=== PATIENT | male | born 1995 | race Caucasian/White ===

== ENCOUNTER 2017-04-25 03:54 | Emergency (ER) | payer OTHER ==
--- NOTE | 2017-04-25 04:22 | ERPHSYRPT ---
- History of Present Illness Time Seen by Provider: 04/25/17 04:17 Source: patient, family Exam Limitations: clinical condition Patient Subjective Stated Complaint: mom states that pt had a seizure, fell out of bed, and hit his head on the wall. Triage Nursing Assessment: pt awake and alert, nonverbal. will answer no to some questions. pt arrive per ambulance. mom with pt on arrival. respirations nonlabored with lungs cta. abrasion and swelling noted to forehead and nose. abrasions noted to fingers on lt hand. bleeding noted from fingernails on rt hand. Physician History: 21 y/o male brought in by ambulance after having a fall last night and landing on his face. Pt arrives with multiple abrasion on his face. According to the mother, patient had a two minute episode of tonic clonic seizure. Pt is not on any seizure meds. No LOC. Pt is not on any blood thinners. Pt is not able to provide any history due to severe autism. Occurred: just prior to arrival Reason for Fall: slipped Injuries/Pain Location: face Loss of Consciousness: brief (seconds) Allergies/Adverse Reactions: No Known Drug Allergies Allergy (Verified 04/25/17 04:09) Home Medications: Paroxetine HCl mg PO 04/25/17 [History] Hx Tetanus, Diphtheria Vaccination/Date Given: Yes Hx Influenza Vaccination/Date Given: No Hx Pneumococcal Vaccination/Date Given: No Immunizations Up to Date: Yes - Review of Systems Constitutional: No Fever, No Chills Eyes: No Symptoms Ears, Nose, & Throat: No Symptoms Respiratory: No Cough, No Dyspnea Cardiac: No Chest Pain, No Edema, No Syncope Abdominal/Gastrointestinal: No Abdominal Pain, No Nausea, No Vomiting, No Diarrhea Genitourinary Symptoms: No Dysuria Musculoskeletal: No Back Pain, No Neck Pain Skin: Other (abrasions), No Rash Neurological: No Dizziness, No Focal Weakness, No Sensory Changes Psychological: No Symptoms Endocrine: No Symptoms All Other Systems: Reviewed and Negative - Past Medical History Pertinent Past Medical History: Yes Neurological History: Seizures Cardiac History: High Cholesterol Psycho-Social History: Other Other Medical History: AUTISM SPECTRUM DISORDER - Past Surgical History Past Surgical History: No - Social History Smoking Status: Never smoker Exposure to second hand smoke: No Drug Use: none Patient Lives Alone: No Significant Family History: other (MOTHER HAD SEIZURE) - Nursing Vital Signs Nursing Vital Signs: Initial Vital Signs Temperature 98.5 F Temperature Source Oral Pulse Rate 95 Respiratory Rate 18 Blood Pressure [Right Arm] 136/74 - Downey Coma Score Best Eye Response (Nadine): (4) open spontaneously Best Verbal Response (Downey): (5) oriented Best Motor Response (Nadine): (6) obeys commands Downey Total: 15 - Physical Exam General Appearance: no apparent distress, alert Head Injury: no evidence of injury Eye Exam: PERRL/EOMI ENT Exam: airway nml, clotted nasal blood Neck Exam: normal inspection, No tenderness Respiratory/Chest Exam: normal breath sounds, No chest tenderness, No respiratory distress Cardiovascular Exam: normal heart sounds, regular rate/rhythm Gastrointestinal Exam: soft, No tenderness, No distention, No guarding, No ecchymosis Back Exam: normal inspection, No vertebral tenderness Extremity Exam: normal inspection, normal range of motion, pelvis stable, No deformities Neurologic Exam: alert, oriented x 3, cooperative, sensation nml, No motor deficits Skin Exam: normal color, warm, dry SpO2: 98 Oxygen Delivery: Room Air - Course Nursing assessment & vital signs reviewed: Yes Ordered Tests: Active Orders 24 hr Category Date Time Status CERVICAL SPINE WO CONTRAST [CT] Stat Exams 04/25/17 04:24 Taken FACIAL BONES WO CONTRAST [CT] Stat Exams 04/25/17 04:24 Taken HEAD WITHOUT CONTRAST [CT] Stat Exams 04/25/17 04:23 Taken CBCD [CBC W DIFF] Stat Lab 04/25/17 04:37 Completed CK (IN-HOUSE) [CK-Creatinine Phosphokinase] Stat Lab 04/25/17 04:37 Completed CMP Stat Lab 04/25/17 04:37 Completed UA W/RFX UR CULTURE Stat Lab 04/25/17 04:22 Ordered Medication Summary Discontinued Medications Generic Name Dose Route Start Last Admin Trade Name Freq PRN Reason Stop Dose Admin Sodium Chloride 1,000 mls @ 999 mls/hr 04/25/17 04:23 04/25/17 04:35 Sodium Chloride 0.9% 1000 Ml IV 04/25/17 05:23 999 mls/hr .Q1H1M STA Administration Sodium Chloride Confirm 04/25/17 04:26 Sodium Chloride 0.9% 1000 Ml Administered 04/25/17 04:27 Dose 1,000 mls @ ud .ROUTE .STK-MED ONE Sodium Chloride Confirm 04/25/17 04:35 Sodium Chloride 0.9% 1000 Ml Administered 04/25/17 04:36 Dose 1,000 mls @ .[facility] ONE Lab/Rad Data: Laboratory Result Diagrams 04/25/17 04:37 04/25/17 04:37 Laboratory Results 04/25/17 04/25/17 04/25/17 Range/Units 04:37 04:37 04:37 WBC 9.1 (4.0-10.5) K/mm3 RBC 4.89 (4.1-5.6) M/mm3 Hgb 15.1 (12.5-18.0) gm/dl Hct 45.6 (42-50) % MCV 93.3 (78-100) fl MCH 30.9 (26-32) pg MCHC 33.1 (32-36) g/dl RDW 12.5 (11.5-14.0) % Plt Count 222 (150-450) K/mm3 MPV 11.6 H (6-9.5) fl Gran % 63.4 (36.0-66.0) % Lymphocytes % 25.0 (24.0-44.0) % Monocytes % 9.7 (0.0-12.0) % Eosinophils % 1.8 (0.00-5.0) % Basophils % 0.1 (0.0-0.4) % Basophils # 0.01 (0-0.4) Sodium 140 (136-145) mEq/L Potassium 3.9 (3.5-5.1) mEq/L Chloride 102 (98-107) mEq/L Carbon Dioxide 27.5 (21-32) mEq/L Anion Gap 14.0 (5-15) MEQ/L BUN 20 (9-20) mg/dL Creatinine 1.13 (0.55-1.30) mg/dl Estimated GFR > 60 ML/MIN Glucose 108 (70-110) MG/DL Calcium 8.9 (8.5-10.1) mg/dL Total Bilirubin 0.40 (0.2-1.0) mg/dL AST 19 (15-37) U/L ALT 29 (12-78) U/L Alkaline Phosphatase 67 (46-116) U/L Creatine Kinase 258 (39-308) U/L Serum Total Protein 7.1 (6.4-8.2) gm/dL Albumin 4.0 (3.4-5.0) g/dL - Progress Progress: improved Progress Note: 04/25/17 05:[address] scan head, cervical spine and facial bones are within normal limits. The rest of the labs are within normal limits. The pt has not had any seizure since arriving to the ER. Pt will f/u with his PCP. - Departure Time of Disposition: 05:30 Departure Disposition: Home Clinical Impression: Seizure Condition: Stable Critical Care Time: No Referrals: YAAKOV WILSON [Primary Care Provider] - Instructions: Seizure Disorder -- Adult Additional Instructions: Follow up with your primary care doctor for any further recommendations for seizures.
[2017-04-25] MEDS ORDERED: Sodium Chloride 0.9% 1000 ML 1,000 ML IV STA (04:23)
[2017-04-25] MEDS ORDERED: Sodium Chloride 0.9% 1000 ML 1,000 ML ONE ×2 (04:26→04:35)
[2017-04-25 04:49] LABS: BASOPHIL % 0.1 % (0.0-0.4); Eosinophil % 1.8 % (0.00-5.0); Granulocytes % 63.4 % (36.0-66.0); Mean Cell Volume 93.3 fl (78-100); Mean Corpuscular Hemoglobin 30.9 pg (26-32); Mean Platelet Volume 11.6 fl (6-9.5); Monocytes % 9.7 % (0.0-12.0); Platelet Count 222 K/mm3 (150-450); Red Blood Count 4.89 M/mm3 (4.1-5.6); Red Cell Distribution Width 12.5 % (11.5-14.0); White Blood Count 9.1 K/mm3 (4.0-10.5)
[2017-04-25 05:13] LABS: ALKALINE PHOSPHATASE 67 U/L (46-116); BLOOD UREA NITROGEN 20 mg/dL (9-20); CHLORIDE 102 mEq/L (98-107); Carbon Dioxide 27.5 mEq/L (21-32); Glucose 108 MG/DL (70-110); Potassium 3.9 mEq/L (3.5-5.1); SGOT/AST 19 U/L (15-37); SGPT/ALT 29 U/L (12-78); SODIUM 140 mEq/L (136-145); Total Protein 7.1 gm/dL (6.4-8.2)
[2017-04-25 05:57] VITALS: BP 129/65; PULSE 78; O2SAT 95
--- NOTE | 2017-04-25 09:10 | XRAY ---
Indication: Neck pain following fall. Multiple contiguous axial images obtained through the cervical spine. Sagittal and coronal reformatted images obtained. Comparison: None. Axial images negative for acute fracture, suspicious bony lesions, or spinal canal stenosis. Sagittal and coronal reformatted images demonstrates cervical lordotic reversal, positional versus paraspinal muscular spasm. Minimal C5-C6 disc space narrowing. Remaining disc spaces preserved. No acute compression fracture, subluxation, or jumped facet. Normal-appearing craniocervical junction. Visualized noncontrasted soft tissues unremarkable. CT head and CT facial bones reported separately. Impression: Cervical lordotic reversal, positional versus paraspinal spasm. Minimal C5-C6 degenerative disc space narrowing. Negative acute fracture/subluxation. Comment: Preliminary interpretation was made by [facility]. No critical discrepancy. CTDI 138.89
--- NOTE | 2017-04-25 09:20 | XRAY ---
Indication: Right frontal abrasion/swelling following fall. Multiple contiguous axial images obtained through the head without contrast. Comparison: July 15, 2016. Stable normal appearing brain parenchyma, ventricles, and bony calvarium. Minimal right frontal scalp soft tissue swelling. Visualized paranasal sinuses and mastoid air cells are pneumatized and clear. Impression: Minimal right frontal scalp soft tissue swelling. No underlying fracture or acute intracranial abnormalities. Comment: Preliminary interpretation was made by [facility]. No discrepancy. CTDI 46.29
--- NOTE | 2017-04-25 09:24 | XRAY ---
Indication: Right frontal abrasion/swelling following fall. Mouth and nose bleed. Multiple contiguous axial images obtained through the facial bones. Sagittal and coronal reformatted images obtained. Comparison: None. Minimally displaced fracture involving the tip of the spine of the maxilla with soft tissue swelling. No other acute fracture, suspicious bony lesions, or radiopaque foreign body. Orbits including roof, rodrigez, and floors intact. Paranasal sinuses are pneumatized and clear. Mild nasal septal deviation to the right. Remaining noncontrasted surrounding soft tissues are unremarkable. CT head and CT cervical spine reported separately. Impression: Fracture involving the tip of the maxilla spine. Comment: Preliminary interpretation was made by [facility]. No critical discrepancy. CTDI 59.47
== END 2017-04-25 06:08 | disposition home or self-care (01) ==
LOC: ED 03:54
DX: R56.9 Unspecified convulsions (principal); S00.93XA Contusion of unspecified part of head, initial encounter; S60.419A Abrasion of unspecified finger, initial encounter; S00.81XA Abrasion of other part of head, initial encounter; F84.0 Autistic disorder; W06.XXXA Fall from bed, initial encounter; E78.00 Pure hypercholesterolemia, unspecified
CPT/HCPCS: 36415; 70450; 70486; 72125; 80053; 82550; 85025; 96360; 99284

== ENCOUNTER 2017-07-24 15:54 | Emergency (ER) | payer OTHER ==
[2017-07-24] MEDS ORDERED: Sodium Chloride 0.9% 1000 ML 1,000 ML IV SCH (16:00)
[2017-07-24] MEDS ORDERED: Sodium Chloride 0.9% 1000 ML 1,000 ML ONE (16:06)
--- NOTE | 2017-07-24 16:07 | ERPHSYRPT ---
- History of Present Illness Time Seen by Provider: 07/24/17 15:57 Source: patient Exam Limitations: other (patient with recent seizure patient is postictal) Patient Subjective Stated Complaint: PT MOTHER REPORTS THAT PT HAD SEIZURE TODAY -STATES PT DOES NOT LIVE WITH HER ET SHE IS UNSURE OF WHEN HIS LAST SEIZURE WAS- STATES THAT IT WAS LIKE HIS USUAL SEIZURES BUT SHE IS NOT USED TO HIM HAVING THEM Triage Nursing Assessment: PT POST ICTAL UPON ARRIVAL-UNABLE TO ANSWER QUESTIONS BUT CAN FOLLOW SIMPLE COMMANDS-RESP NONLABORED-PUPILS RESPONSIVE Physician History: This is a 21-year-old white male with history of seizure disorders, hyperlipidemia, autism Patient is brought by his mother with complaint that patient had a seizure just prior to arrival patient is in the mother's car pulled into the day on arrival patient was postictal. Patient is brought into the emergency room by the nurses. On arrival patient appears to be somewhat confused he is however looking around he is able to move all of his extremities cranial nerves II through XII are intact. According to the mother patient has had a seizure in which the patient laid back and had some jerking motions of his upper extremity states typical for prior seizures. Patient's mother is not sure what medications the patient is on. Apparently patient is on Xanax Geodon and Paxil. Past medical history includes seizures, hyperlipidemia, autism spectrum disorder. Past surgical history negative Timing/Duration: today (just prior to arrival) Severity: moderate Modifying Factors: Improves With: nothing Associated Symptoms: seizure, No nausea, No vomiting, No abdominal pain, No shortness of breath, No heartburn, No diaphoresis, No cough, No chills, No chest pain, No fever, No headaches, No loss of appetite, No malaise, No rash, No syncope, No weakness Allergies/Adverse Reactions: No Known Drug Allergies Allergy (Verified 07/24/17 16:03) Home Medications: Paroxetine HCl 20 mg PO DAILY 04/25/17 [History] Alprazolam 1 mg [Xanax 1 mg] 1 mg PO BID 07/24/17 [History] Ziprasidone 20 mg [Geodon 20 MG Capsule] 20 mg PO DAILY 07/24/17 [History] Hx Tetanus, Diphtheria Vaccination/Date Given: Yes Hx Influenza Vaccination/Date Given: No Hx Pneumococcal Vaccination/Date Given: No Immunizations Up to Date: Yes - Review of Systems Constitutional: No Fever, No Chills Eyes: No Symptoms Ears, Nose, & Throat: No Symptoms Respiratory: No Cough, No Dyspnea Cardiac: No Chest Pain, No Edema, No Syncope Abdominal/Gastrointestinal: No Abdominal Pain, No Nausea, No Vomiting, No Diarrhea Genitourinary Symptoms: No Dysuria Musculoskeletal: No Back Pain, No Neck Pain Skin: No Rash Neurological: Seizure Psychological: No Symptoms Endocrine: No Symptoms All Other Systems: Reviewed and Negative - Past Medical History Pertinent Past Medical History: Yes Neurological History: Seizures Cardiac History: High Cholesterol Psycho-Social History: Other Other Medical History: AUTISM SPECTRUM DISORDER - Past Surgical History Past Surgical History: No - Social History Smoking Status: Never smoker Exposure to second hand smoke: No Drug Use: none Patient Lives Alone: No Significant Family History: other (MOTHER HAD SEIZURE) - Nursing Vital Signs Nursing Vital Signs: Initial Vital Signs Temperature 97.8 F 07/24/17 16:09 Pulse Rate 105 H 07/24/17 16:09 Respiratory Rate 18 07/24/17 16:09 Blood Pressure 132/64 07/24/17 16:09 O2 Sat by Pulse Oximetry 97 07/24/17 16:09 Pain Scale Pain Intensity 0 - Physical Exam General Appearance: other (patient confused and postictal) Eye Exam: PERRL/EOMI, eyes nml inspection Ears, Nose, Throat Exam: normal ENT inspection, TMs normal, pharynx normal, moist mucous membranes Neck Exam: normal inspection, non-tender, supple, full range of motion Respiratory Exam: normal breath sounds, lungs clear, No respiratory distress Cardiovascular Exam: regular rate/rhythm, normal heart sounds, normal peripheral pulses Gastrointestinal/Abdomen Exam: soft, normal bowel sounds, No tenderness, No mass Back Exam: normal inspection, normal range of motion, No CVA tenderness, No vertebral tenderness Extremity Exam: normal inspection, normal range of motion, pelvis stable Neurologic Exam: alert, 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 nml as tested, other (patient appears to be confused, postictal moves all extremities cranial nerves II through XII intact) Skin Exam: normal color, warm, dry, No rash Lymphatic Exam: No adenopathy SpO2 Interpretation: normal - Course Nursing assessment & vital signs reviewed: Yes EKG Interpreted by Me: RATE (105 bpm), Sinus Tach, NORMAL AXIS, Other (EKG: Sinus tachycardia, 105 bpm, normal axis, no acute ST or T wave changes) Ordered Tests: Active Orders 24 hr Category Date Time Status Accucheck STAT Care 07/24/17 15:57 Active EKG-ER Only STAT Care 07/24/17 15:57 Active IV Insertion STAT Care 07/24/17 15:57 Active CBC W DIFF Stat Lab 07/24/17 16:00 Completed CMP Stat Lab 07/24/17 16:00 Completed Medication Summary Generic Name Dose Route Start Last Admin Trade Name Marely PRN Reason Stop Dose Admin Sodium Chloride 1,000 mls @ 100 mls/hr 07/24/17 16:00 07/24/17 16:08 Sodium Chloride 0.9% 1000 Ml IV 08/23/17 15:59 100 mls/hr .Q10H SETH Administration Lab/Rad Data: Laboratory Result Diagrams 07/24/17 16:00 07/24/17 16:00 Laboratory Results 07/24/17 07/24/17 Range/Units 16:00 16:00 WBC 9.2 (4.0-10.5) K/mm3 RBC 5.31 (4.1-5.6) M/mm3 Hgb 16.1 (12.5-18.0) gm/dl Hct 49.5 (42-50) % MCV 93.2 (78-100) fl MCH 30.3 (26-32) pg MCHC 32.5 (32-36) g/dl RDW 12.7 (11.5-14.0) % Plt Count 276 (150-450) K/mm3 MPV 11.0 H (6-9.5) fl Gran % 45.9 (36.0-66.0) % Lymphocytes % 40.5 (24.0-44.0) % Monocytes % 11.4 (0.0-12.0) % Eosinophils % 2.0 (0.00-5.0) % Basophils % 0.2 (0.0-0.4) % Basophils # 0.02 (0-0.4) Sodium 141 (136-145) mEq/L Potassium 3.8 (3.5-5.1) mEq/L Chloride 102 (98-107) mEq/L Carbon Dioxide 21.1 (21-32) mEq/L Anion Gap 21.7 H (5-15) MEQ/L BUN 15 (9-20) mg/dL Creatinine 1.21 (0.55-1.30) mg/dl Estimated GFR > 60 ML/MIN Glucose 115 H (70-110) MG/DL Calcium 8.8 (8.5-10.1) mg/dL Total Bilirubin 0.60 (0.2-1.0) mg/dL AST 19 (15-37) U/L ALT 37 (12-78) U/L Alkaline Phosphatase 80 (46-116) U/L Serum Total Protein 7.5 (6.4-8.2) gm/dL Albumin 4.3 (3.4-5.0) g/dL - Progress Progress: improved Progress Note: 07/24/17 17:01 The patient is improving more alert, no further seizure activity, the patient's anion gap is increased will give patient normal saline IV . The patient's motherwas in contact with the patient's father, he wants him to return home when he is awake, Will plan to release after iv normal saline has run in. - Departure Time of Disposition: 17:40 Departure Disposition: Home Clinical Impression: Seizure Condition: Fair Critical Care Time: No Referrals: YAAKOV WILSON [Primary Care Provider] - Instructions: Seizure Disorder -- Adult Additional Instructions: Return home, rest plenty of fluids Take medications as prescribed by your family doctor. follow up with your familydoctor/ neurologist No heights , no Driving, take showers instead of baths do not engage in any activity which may harm you or anyone else. Return for acute distress or for severe symptoms or problems.
[2017-07-24 16:12] LABS: BASOPHIL % 0.2 % (0.0-0.4); Granulocytes % 45.9 % (36.0-66.0); Lymphocytes % 40.5 % (24.0-44.0); Mean Cell Volume 93.2 fl (78-100); Mean Corpuscular Hemoglobin 30.3 pg (26-32); Monocytes % 11.4 % (0.0-12.0); Platelet Count 276 K/mm3 (150-450); Red Blood Count 5.31 M/mm3 (4.1-5.6); Red Cell Distribution Width 12.7 % (11.5-14.0); White Blood Count 9.2 K/mm3 (4.0-10.5)
[2017-07-24 16:33] LABS: ALBUMIN 4.3 g/dL (3.4-5.0); ALKALINE PHOSPHATASE 80 U/L (46-116); ANION GAP 21.7 MEQ/L (5-15); BLOOD UREA NITROGEN 15 mg/dL (9-20); CHLORIDE 102 mEq/L (98-107); Carbon Dioxide 21.1 mEq/L (21-32); Glucose 115 MG/DL (70-110); Potassium 3.8 mEq/L (3.5-5.1); SGOT/AST 19 U/L (15-37); SGPT/ALT 37 U/L (12-78); SODIUM 141 mEq/L (136-145); Total Protein 7.5 gm/dL (6.4-8.2)
[2017-07-24 18:50] VITALS: BP 125/74; PULSE 68; O2SAT 98
== END 2017-07-24 18:17 | disposition home or self-care (01) ==
LOC: ED 15:54
DX: R56.9 Unspecified convulsions (principal)
CPT/HCPCS: 36000; 36415; 80053; 82962; 85025; 93005; 96360; 96361; 99284

== ENCOUNTER 2017-09-17 20:57 | Emergency (ER) | payer OTHER ==
[2017-09-17] MEDS ORDERED: Sodium Chloride 0.9% 1000 ML 1,000 ML IV STA (21:08)
[2017-09-17] MEDS ORDERED: Sodium Chloride 0.9% 1000 ML 1,000 ML ONE (21:11)
--- NOTE | 2017-09-17 21:15 | ERPHSYRPT ---
- History of Present Illness Time Seen by Provider: 09/17/17 21:00 Source: EMS Exam Limitations: clinical condition, other (postictal, chronic confusion) Patient Subjective Stated Complaint: Unable to evaluate, pt is nonverbal, postictal. According to EMS personnel he suffered one episode of seizure according to her family. No recent fall, vomiting or fever. Timing/Duration: today Severity: severe Character of Deficits: other (seizure) Deficits: no difficulties Baseline/Normal Cognition: alert but confused Current Cognition: alert but confused Associated Symptoms: other (unable to evaluate, pt is nonverbal) Allergies/Adverse Reactions: No Known Drug Allergies Allergy (Verified 07/24/17 16:03) Home Medications: Paroxetine HCl 20 mg PO DAILY 04/25/17 [History] Alprazolam 1 mg [Xanax 1 mg] 1 mg PO BID 07/24/17 [History] Ziprasidone 20 mg [Geodon 20 MG Capsule] 20 mg PO DAILY 07/24/17 [History] Hx Tetanus, Diphtheria Vaccination/Date Given: Yes Hx Influenza Vaccination/Date Given: No Hx Pneumococcal Vaccination/Date Given: No - Review of Systems All Other Systems: Unable due to condition - Past Medical History Pertinent Past Medical History: Yes Neurological History: Seizures Cardiac History: High Cholesterol Psycho-Social History: Other Other Medical History: AUTISM SPECTRUM DISORDER - Past Surgical History Past Surgical History: No - Social History Smoking Status: Never smoker Exposure to second hand smoke: No Drug Use: none Patient Lives Alone: No Significant Family History: other (MOTHER HAD SEIZURE) - Nursing Vital Signs Nursing Vital Signs: Initial Vital Signs Temperature 97.6 F 09/17/17 21:25 Pulse Rate 105 H 09/17/17 21:25 Respiratory Rate 16 09/17/17 21:25 Blood Pressure 135/75 09/17/17 21:25 O2 Sat by Pulse Oximetry 95 09/17/17 21:25 Pain Scale Pain Intensity 2 - Nadine Coma Scale Best Eye Response (Nadine): (4) open spontaneously Best Verbal Response (Marion): (2) incomprehsible sounds Best Motor Response (Nadine): (5) localizes to pain Nadine Total: 11 - Physical Exam General Appearance: no apparent distress Eye Exam: bilateral eye: PERRL, EOMI Ears, Nose, Throat Exam: normal ENT inspection, TMs normal, pharynx normal Neck Exam: normal inspection, non-tender, supple Respiratory: normal breath sounds, lungs clear, No chest tenderness Cardiovascular: regular rate/rhythm, normal heart sounds, normal peripheral pulses Gastrointestinal: soft, normal bowel sounds, No tenderness, No distention, No mass, No guarding Male Genitalia: normal genitalia Peripheral Pulses: carotid (R): 3+, carotid (L): 3+, dorsalis-pedis (R): 3+, dorsalis-pedis (L): 3+ Mental Status: alert, disoriented to person, disoriented to place Motor/Sensory: no motor deficit Skin Exam: normal color, warm, dry, No rash SpO2 Interpretation: normal - Course EKG Interpreted by Me: RATE, Sinus Rhythm, NORMAL AXIS, NORMAL ST-T - CT Exams Head CT Interpretation: Negative Ordered Tests: Active Orders 24 hr Category Date Time Status EKG-ER Only STAT Care 09/17/17 21:06 Active NPO (ED) STAT Care 09/17/17 21:05 Active Oxygen-ED Only NASAL CANNULA 2 lpm Care 09/17/17 21:05 Active HEAD WITHOUT CONTRAST [CT] Stat Exams 09/17/17 21:05 Taken CBC W DIFF Stat Lab 09/17/17 21:36 Completed CK-Creatinine Phosphokinase Stat Lab 09/17/17 21:36 Completed CMP Stat Lab 09/17/17 21:36 Completed ETHYL ALCOHOL Stat Lab 09/17/17 21:36 Completed MAGNESIUM Stat Lab 09/17/17 21:36 Completed TROPONIN Q3H Lab 09/17/17 21:36 Completed UA W/RFX UR CULTURE Stat Lab 09/17/17 21:05 Ordered Urine Triage Profile Stat Lab 09/17/17 Uncollected Medication Summary Generic Name Dose Route Start Last Admin Trade Name Freq PRN Reason Stop Dose Admin Levetiracetam 1,000 mg/ 110 mls @ 220 mls/hr 09/17/17 22:50 Dextrose IV 09/17/17 23:19 STAT ONE Discontinued Medications Generic Name Dose Route Start Last Admin Trade Name Freq PRN Reason Stop Dose Admin Sodium Chloride 1,000 mls @ 999 mls/hr 09/17/17 21:08 09/17/17 21:29 Sodium Chloride 0.9% 1000 Ml IV 09/17/17 22:08 999 mls/hr .Q1H1M STA Administration Sodium Chloride Confirm 09/17/17 21:11 Sodium Chloride 0.9% 1000 Ml Administered 09/17/17 21:12 Dose 1,000 mls @ ud .ROUTE .STK-MED ONE Lab/Rad Data: Laboratory Result Diagrams 09/17/17 21:36 09/17/17 21:36 Laboratory Results 09/17/17 09/17/17 09/17/17 Range/Units 21:36 21:36 21:36 WBC 9.5 (4.0-10.5) K/mm3 RBC 5.16 (4.1-5.6) M/mm3 Hgb 15.9 (12.5-18.0) gm/dl Hct 48.0 (42-50) % MCV 93.0 (78-100) fl MCH 30.8 (26-32) pg MCHC 33.1 (32-36) g/dl RDW 12.7 (11.5-14.0) % Plt Count 263 (150-450) K/mm3 MPV 11.9 H (6-9.5) fl Gran % 57.8 (36.0-66.0) % Lymphocytes % 32.0 (24.0-44.0) % Monocytes % 8.8 (0.0-12.0) % Eosinophils % 1.2 (0.00-5.0) % Basophils % 0.2 (0.0-0.4) % Basophils # 0.02 (0-0.4) Sodium 142 (136-145) mEq/L Potassium 4.1 (3.5-5.1) mEq/L Chloride 103 (98-107) mEq/L Carbon Dioxide 23.2 (21-32) mEq/L Anion Gap 19.6 H (5-15) MEQ/L BUN 14 (9-20) mg/dL Creatinine 1.40 H (0.55-1.30) mg/dl Estimated GFR > 60 ML/MIN Glucose 111 H (70-110) MG/DL Calcium 8.7 (8.5-10.1) mg/dL Magnesium 2.0 (1.8-2.4) mg/dL Total Bilirubin 0.40 (0.2-1.0) mg/dL AST 18 (15-37) U/L ALT 31 (12-78) U/L Alkaline Phosphatase 78 (46-116) U/L Creatine Kinase 187 (39-308) U/L Troponin I < 0.017 (0.000-0.056) ng/ml Serum Total Protein 7.9 (6.4-8.2) gm/dL Albumin 4.3 (3.4-5.0) g/dL Ethyl Alcohol < 0.010 (0.00-0.01) % - Progress Progress: improved Progress Note: 09/17/17 22:57 Pt has been seizure free, nonverbal, at his usual mental functioning level according to his mother and father, who arrived later. I nhad a long discussion with his parents, who do not live together, his mother was watching over him, while the father was at work. She told me that he had one episode of seizure, lasting 3-5 minutes, denies fall, injury, or vomiting. He was on the couch. Father told me, he had another, similar episode 2 days ago, he did not call 911. He has been seen by his doctor for this, EEG was performed, was apparently normal, and no seizure medication was recommended. He is yet to be seen by Neurologist, father is planning to arrange that. He has never been on any anticonvulsive treatment. - Departure Time of Disposition: 23:01 Departure Disposition: Home Clinical Impression: Seizure Condition: Stable Critical Care Time: No Referrals: YAAKOV WILSON [Primary Care Provider] - Instructions: Seizure Disorder -- Adult, Pseudoseizure Additional Instructions: Return if severe headaches, seizures, vomiting, lethargy ! Follow up with PCP and Neurologist next week!
[2017-09-17 21:41] LABS: BASOPHIL % 0.2 % (0.0-0.4); Eosinophil % 1.2 % (0.00-5.0); Granulocytes % 57.8 % (36.0-66.0); Mean Corpuscular Hemoglobin 30.8 pg (26-32); Mean Platelet Volume 11.9 fl (6-9.5); Monocytes % 8.8 % (0.0-12.0); Platelet Count 263 K/mm3 (150-450); Red Blood Count 5.16 M/mm3 (4.1-5.6); Red Cell Distribution Width 12.7 % (11.5-14.0); White Blood Count 9.5 K/mm3 (4.0-10.5)
[2017-09-17 22:00] VITALS: O2SAT 97
[2017-09-17 22:05] LABS: ALBUMIN 4.3 g/dL (3.4-5.0); ALKALINE PHOSPHATASE 78 U/L (46-116); ANION GAP 19.6 MEQ/L (5-15); BLOOD UREA NITROGEN 14 mg/dL (9-20); CHLORIDE 103 mEq/L (98-107); Carbon Dioxide 23.2 mEq/L (21-32); ETHYL ALCOHOL < 0.010 % (0.00-0.01); Glucose 111 MG/DL (70-110); Potassium 4.1 mEq/L (3.5-5.1); SGPT/ALT 31 U/L (12-78); SODIUM 142 mEq/L (136-145); Total Protein 7.9 gm/dL (6.4-8.2)
[2017-09-17 22:39] LABS: SGOT/AST 18 U/L (15-37)
[2017-09-17] MEDS ORDERED: Keppra 500 MG/5 ML*** 1,000 MG in D5w 100ML Mini Bag 100 ML 100 ML IV ONE (22:50)
[2017-09-17] MEDS ORDERED: Keppra 500 MG/5 ML ONE (22:56)
[2017-09-17 23:21] VITALS: BP 127/68; PULSE 90
--- NOTE | 2017-09-18 09:05 | XRAY ---
Indication: Seizure. Multiple contiguous axial images obtained through the head without contrast. Comparison: April 25, 2017. Images through the vertex slightly degraded by motion artifact. Ventriculosulcal pattern appears symmetric. No acute intracranial hemorrhage, abnormal extra-axial fluid collection, or mass effect. Fourth ventricle is midline without hydrocephalus. Arenas-white matter differentiation preserved. Bony calvarium intact. Visualized paranasal sinuses and mastoid air cells are clear. Impression: Mild motion artifact. No gross new/acute intracranial abnormalities. CT DI 66.12
== END 2017-09-17 23:23 | disposition home or self-care (01) ==
LOC: ED 20:57
DX: R56.9 Unspecified convulsions (principal)
CPT/HCPCS: 36415; 70450; 80053; 82550; 83735; 84484; 85025; 93005; 96360; 99284; G0481; J1953

== ENCOUNTER 2022-02-13 16:21 | Emergency (ER) | payer SELFPAY ==
[2022-02-13 17:24] LABS: Absolute Neutrophil Ct (ANC) 3.79 (1.4-6.9); Basophil (Absolute #) 0.01 (0-0.4); Eosinophil % 0.8 % (0.00-5.0); Eosinophil (Absolute #) 0.04 (0-0.5); Hematocrit 48.3 % (42-50); Hemoglobin 15.9 gm/dl (12.5-18.0); Lymphocyte (Absolute #) 1.01 (1.0-4.6); Lymphocytes % 19.1 % (24.0-44.0); Mean Cell Volume 93.2 fl (78-100); Mean Corpuscular Hemoglobin 30.7 pg (26-32); Mean Corpuscular Hgb Concent. 32.9 g/dl (32-36); Mean Platelet Volume 12.4 fl (7.5-11.0); Monocyte (Absolute #) 0.43 (0.0-1.3); Monocytes % 8.1 % (0.0-12.0); Neutrophil % 71.8 % (36.0-66.0); Platelet Count 163 K/mm3 (150-450); Red Blood Count 5.18 M/mm3 (4.1-5.6); Red Cell Distribution Width 12.8 % (11.5-14.0); White Blood Count 5.3 K/mm3 (4.0-10.5)
[2022-02-13 17:35] LABS: ALBUMIN 4.3 g/dL (3.5-5.0); ALKALINE PHOSPHATASE 79 U/L (38-126); ANION GAP 13.3 MEQ/L (5-15); BLOOD UREA NITROGEN 10 mg/dL (9-20); CHLORIDE 102 mmol/L (98-107); Carbon Dioxide 27 mmol/L (22-30); Creatinine 1 1.04 mg/dL (0.66-1.25); EST GLOMERULAR FILTRATION RATE > 60.0 ML/MIN; Glucose 108 mg/dL (74-106); MAGNESIUM 2.2 mg/dL (1.6-2.3); Potassium 4.1 mmol/L (3.5-5.1); SGOT/AST 24 U/L (17-59); SGPT/ALT 21 U/L (0-50); SODIUM 138 mmol/L (137-145); Total Protein 7.3 g/dL (6.3-8.2)
[2022-02-13 17:36] VITALS: PULSE 70; O2SAT 96
[2022-02-13] MEDS ORDERED: Ativan 2 MG/1 ML VIAL ONE (17:48)
[2022-02-13] MEDS: Ativan 2 MG/1 ML VIAL IV ONE (17:50)
--- NOTE | 2022-02-13 18:04 | ERPHSYRPT ---
- History of Present Illness Time Seen by Provider: 02/13/22 16:30 Exam Limitations: physical impairment Patient Subjective Stated Complaint: seizure like activity, one episode. 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 length of seizure approx 55 sec as reported by father. Triage Nursing Assessment: pt to ED by EMS with father c/o seizure like activity today. father states length of seizure was 55 seconds. pt states pain now in L forehead and R hand. laceration noted to L eyebrow and abrasion to R palm. pt has hx of seizures and autistism, has previously been on seizure meds but has not been taking anything about 6 months. neurologist in [place] but unsure of her name. pt is alert and oriented to baseline, pt is nonverbal. Physician History: Patient is a 26-year-old male with a history of seizure disorder and autism requires 24-hour care presents to our ED via EMS for evaluation of a seizure that happened approximately 1 hour prior to arrival. Patient is here with his father. Father states patient has a history of seizures. However father decided to discontinue patient's seizure medication on his own will. Father felt the seizure medication was not working and he could not afford it any longer. Patient reportedly fell. Patient hit his head. He currently has a small left eyebrow laceration. There is laceration to the right palm of his h and. Father does not know the name of patient's antiseizure medication that was discontinued Timing/Duration: today Severity: moderate Modifying Factors: Improves With: nothing Associated Symptoms: denies symptoms Allergies/Adverse Reactions: No Known Drug Allergies Allergy (Verified 02/13/22 16:39) Hx Tetanus, Diphtheria Vaccination/Date Given: Yes Hx Influenza Vaccination/Date Given: Yes Hx Pneumococcal Vaccination/Date Given: No Immunizations Up to Date: Yes Travel Risk - International Travel Have you traveled outside of the country in past 3 weeks: No - Coronavirus Screening Are you exhibiting any of the following symptoms?: No Close contact with a COVID-19 positive Pt in past 14-21 Days: No - Vaccine Status Have you recieved a Covid-19 vaccination: No - Review of Systems All Other Systems: Unable due to condition - Past Medical History Pertinent Past Medical History: Yes Neurological History: Seizures Cardiac History: High Cholesterol Psycho-Social History: Other Other Medical History: AUTISM SPECTRUM DISORDER - Past Surgical History Past Surgical History: No - Social History Smoking Status: Never smoker Exposure to second hand smoke: No Drug Use: none Patient Lives Alone: No (father) Significant Family History: other (MOTHER HAD SEIZURE) - Nursing Vital Signs Nursing Vital Signs: Initial Vital Signs Temperature 97.4 F 02/13/22 16:22 Pulse Rate 98 H 02/13/22 16:22 Respiratory Rate 16 02/13/22 16:22 Blood Pressure 129/95 02/13/22 16:22 O2 Sat by Pulse Oximetry 100 02/13/22 16:22 Pain Scale Pain Intensity 5 - Physical Exam General Appearance: alert, obese, other (Patient is postictal) Eye Exam: PERRL/EOMI, eyes nml inspection Ears, Nose, Throat Exam: normal ENT inspection, TMs normal, pharynx normal, moist mucous membranes Neck Exam: normal inspection, non-tender, supple, full range of motion Respiratory Exam: normal breath sounds, lungs clear, airway intact, No respiratory distress Cardiovascular Exam: regular rate/rhythm, normal heart sounds, normal peripheral pulses Gastrointestinal/Abdomen Exam: soft, normal bowel sounds, No tenderness, No mass Back Exam: normal inspection, normal range of motion, No CVA tenderness, No vertebral tenderness Extremity Exam: normal inspection, normal range of motion, pelvis stable Neurologic Exam: other (Patient appears to be recovering from his postictal period. Father states patient is at his baseline.), No motor deficits Skin Exam: normal color, warm, dry, No rash Lymphatic Exam: No adenopathy SpO2 Interpretation: normal SpO2: 96 O2 Delivery: Room Air Procedures - Laceration/Wound Repair Frontal Time of Procedure: 20:34 Wound Location: Left (Left eyebrow) Wound Length (cm): 2.5 Wound's Depth, Shape: superficial Wound Explored: clean Irrigated: Yes Hibiclens Prep: Yes Anesthesia: 2% Lidocaine Volume Anesthetic (ccs): 4 Wound Debrided: No debridement indicated Wound Repaired With: sutures Suture Size/Type: 6-0, nylon Number of Sutures: 4 Layer Closure?: No Sterile Dressing Applied?: Yes Sling Applied?: No Progress: 02/13/22 20:35 Patient tolerated procedure well. No intraprocedural complications. - Course Nursing assessment & vital signs reviewed: Yes EKG Interpreted by Me: RATE (93), Sinus Rhythm, NORMAL AXIS, NORMAL INTERVALS, NORMAL QRS - CT Exams Head CT Interpretation: Tele-radiologist Report (Continued normal head compared to 09/17/2017.) Maxillofacial Bones CT Interpretation: Tele-radiologist Report (Stable tiny old fracture tip spine of maxilla. No new acute findings) Ordered Tests: Active Orders 24 hr Category Date Time Status Check Clerk STAT Care 02/13/22 16:59 Active EKG-ER Only STAT Care 02/13/22 16:59 Active IV Insertion STAT Care 02/13/22 16:59 Active Pulse Oximetry (ED) STAT Care 02/13/22 16:59 Active FACIAL BONES WO CONTRAST [CT] Stat Exams 02/13/22 16:58 Taken HEAD WITHOUT CONTRAST [CT] Stat Exams 02/13/22 16:58 Taken CBC W DIFF Stat Lab 02/13/22 17:18 Completed CMP Stat Lab 02/13/22 17:18 Completed MAGNESIUM Stat Lab 02/13/22 17:18 Completed TROPONIN Q3H Lab 02/13/22 17:18 Completed TROPONIN Q3H Lab 02/13/22 20:00 Ordered TROPONIN Q3H Lab 02/13/22 23:00 Ordered TROPONIN Q3H Lab 02/14/22 02:00 Ordered TROPONIN Q3H Lab 02/14/22 05:00 Ordered UA W/RFX CULTURE Stat Lab 02/13/22 20:05 Completed Urine Triage Profile Stat Lab 02/13/22 20:05 Received Medication Summary Generic Name Dose Route Start Last Admin Trade Name Freq PRN Reason Stop Dose Admin Levetiracetam 1,000 mg/ 110 mls @ 220 mls/hr 02/13/22 20:20 Dextrose IV 02/13/22 20:49 STAT ONE Discontinued Medications Generic Name Dose Route Start Last Admin Trade Name Freq PRN Reason Stop Dose Admin Lorazepam 1 mg 02/13/22 17:45 02/13/22 17:50 Lorazepam 2 Mg/1 Ml 2 Mg Vial IV 02/13/22 17:46 1 mg STAT ONE Administration Lorazepam Confirm 02/13/22 17:48 Lorazepam 2 Mg/1 Ml 2 Mg Vial Administered 02/13/22 17:49 Dose 2 mg .ROUTE .STK-MED ONE Lab/Rad Data: Laboratory Result Diagrams 02/13/22 17:18 02/13/22 17:18 Laboratory Results 05/05/22 05/05/22 05/05/22 Range/Units 20:05 17:18 17:18 WBC (4.0-10.5) K/mm3 RBC (4.1-5.6) M/mm3 Hgb (12.5-18.0) gm/dl Hct (42-50) % MCV (78-100) fl MCH (26-32) pg MCHC (32-36) g/dl RDW (11.5-14.0) % Plt Count (150-450) K/mm3 MPV (7.5-11.0) fl Gran % (36.0-66.0) % Eos # (Auto) (0-0.5) Absolute Lymphs (auto) (1.0-4.6) Absolute Monos (auto) (0.0-1.3) Lymphocytes % (24.0-44.0) % Monocytes % (0.0-12.0) % Eosinophils % (0.00-5.0) % Basophils % (0.0-0.4) % Absolute Granulocytes (1.4-6.9) Basophils # (0-0.4) Sodium 138 (137-145) mmol/L Potassium 4.1 (3.5-5.1) mmol/L Chloride 102 (98-107) mmol/L Carbon Dioxide 27 (22-30) mmol/L Anion Gap 13.3 (5-15) MEQ/L BUN 10 (9-20) mg/dL Creatinine 1.04 (0.66-1.25) mg/dL Estimated GFR > 60.0 ML/MIN Glucose 108 H (74-106) mg/dL Calcium 9.0 (8.4-10.2) mg/dL Magnesium 2.2 (1.6-2.3) mg/dL Total Bilirubin 0.80 (0.2-1.3) mg/dL AST 24 (17-59) U/L ALT 21 (0-50) U/L Alkaline Phosphatase 79 (38-126) U/L Troponin I < 0.012 (0.000-0.034) ng/mL Serum Total Protein 7.3 (6.3-8.2) g/dL Albumin 4.3 (3.5-5.0) g/dL Urinalys Dipstick Clnc MAIN LAB Urine Color YELLOW (YELLOW) Urine Appearance CLEAR (CLEAR) Urine pH 7.5 (5-6) Ur Specific [place] 1.025 (1.005-1.025) POC Urine Protein Conf 30 (Negative) Urine Ketones NEGATIVE (NEGATIVE) Urine Nitrite NEGATIVE (NEGATIVE) Urine Bilirubin NEGATIVE (NEGATIVE) Urine Urobilinogen 1 (0-1) mg/dL Urine Leukocytes NEGATIVE (NEGATIVE) Urine WBC (Auto) 0-2 (0-5) /HPF Urine Bacteria (Auto) RARE (NEGATIVE) /HPF Urine RBC NEGATIVE (0-5) Jey/ul Urine Mucus (Auto) SLIGHT (NEGATIVE) /HPF Ur Culture Indicated? NO Urine Glucose NEGATIVE (NEGATIVE) mg/dL 02/13/22 Range/Units 17:18 WBC 5.3 (4.0-10.5) K/mm3 RBC 5.18 (4.1-5.6) M/mm3 Hgb 15.9 (12.5-18.0) gm/dl Hct 48.3 (42-50) % MCV 93.2 (78-100) fl MCH 30.7 (26-32) pg MCHC 32.9 (32-36) g/dl RDW 12.8 (11.5-14.0) % Plt Count 163 (150-450) K/mm3 MPV 12.4 H (7.5-11.0) fl Gran % 71.8 H (36.0-66.0) % Eos # (Auto) 0.04 (0-0.5) Absolute Lymphs (auto) 1.01 (1.0-4.6) Absolute Monos (auto) 0.43 (0.0-1.3) Lymphocytes % 19.1 L (24.0-44.0) % Monocytes % 8.1 (0.0-12.0) % Eosinophils % 0.8 (0.00-5.0) % Basophils % 0.2 (0.0-0.4) % Absolute Granulocytes 3.79 (1.4-6.9) Basophils # 0.01 (0-0.4) Sodium (137-145) mmol/L Potassium (3.5-5.1) mmol/L Chloride (98-107) mmol/L Carbon Dioxide (22-30) mmol/L Anion Gap (5-15) MEQ/L BUN (9-20) mg/dL Creatinine (0.66-1.25) mg/dL Estimated GFR ML/MIN Glucose (74-106) mg/dL Calcium (8.4-10.2) mg/dL Magnesium (1.6-2.3) mg/dL Total Bilirubin (0.2-1.3) mg/dL AST (17-59) U/L ALT (0-50) U/L Alkaline Phosphatase (38-126) U/L Troponin I (0.000-0.034) ng/mL Serum Total Protein (6.3-8.2) g/dL Albumin (3.5-5.0) g/dL Urinalys Dipstick Clnc Urine Color (YELLOW) Urine Appearance (CLEAR) Urine pH (5-6) Ur Specific [place] (1.005-1.025) POC Urine Protein Conf (Negative) Urine Ketones (NEGATIVE) Urine Nitrite (NEGATIVE) Urine Bilirubin (NEGATIVE) Urine Urobilinogen (0-1) mg/dL Urine Leukocytes (NEGATIVE) Urine WBC (Auto) (0-5) /HPF Urine Bacteria (Auto) (NEGATIVE) /HPF Urine RBC (0-5) Jey/ul Urine Mucus (Auto) (NEGATIVE) /HPF Ur Culture Indicated? Urine Glucose (NEGATIVE) mg/dL - Progress Progress: improved Progress Note: Patient's father does not want patient to stay in the hospital. He states that patient cannot tolerate hospitals. Case discussed with Dr. Isaac. We will load patient with a dose of Keppra. Dr. Aleman will see patient in his office tomorrow morning at 9 AM. Father agrees to follow-up with Dr. Isaac at 9 AM as discussed. He voices no other complaints or concerns at this time. Patient is now functioning at his neurologic baseline. Portions of this note were created with voice recognition technology. There may be grammatical, spelling, punctuation or sound alike errors 02/13/22 20:21 Discussed with .: Parker Will see patient in: office Counseled pt/family regarding: lab results, diagnosis, need for follow-up, rad results - Departure Departure Disposition: Home Clinical Impression: Seizure Condition: Stable Critical Care Time: No Referrals: YAAKOV ISAAC [Primary Care Provider] - Follow up/PCP as directed Additional Instructions: Please follow-up with Dr. Isaac's office tomorrow at 9 AM as discussed. Discharge/Care Plan DONNIE LARSEN was seen on 02/13/22 in the Emergency Room. The patient was counseled regarding Diagnosis,Lab results, Imaging studies, need for follow up and when to return to the Emergency Room. Prescriptions given: Discharge Note I have spoken with the patient and/or caregivers. I have explained the patient's condition, diagnosis and treatment plan based on the information available to me at this time. I have answered the patient's and/or caregiver's questions and addressed any concerns. The patient and/or caregivers have as good understanding of the patient's diagnosis, condition and treatment plan as can be expected at this point. The vital signs have been stable. The patient's condition is stable and appropriate for discharge from the emergency department. The patient will pursue further outpatient evaluation with the primary care physician or other designated or consulting physician as outlined in the discharge instructions. The patient and/or caregivers are agreeable to this plan of care and follow-up instructions have been explained in detail. The patient and/or caregivers have received these instruction. The patient/and or caregivers are aware that any significant change in condition or worsening of symptoms should prompt an immediate return to this or the closest emergency department or call 911.
[2022-02-13 18:49] VITALS: BP 121/74
[2022-02-13 20:16] LABS: Bacteria RARE /HPF (NEGATIVE); Mucus SLIGHT /HPF (NEGATIVE); WBC 0-2 /HPF (0-5)
[2022-02-13 20:17] LABS: Appearance CLEAR (CLEAR); Bilirubin NEGATIVE (NEGATIVE); Glucose NEGATIVE (NEGATIVE); Ketones NEGATIVE (NEGATIVE); Ph 7.5 (5-6); Protein,Urine Dip 30 (Negative); RBC NEGATIVE Ery/ul (0-5); Specific Gravity 1.025 (1.005-1.025); Urobilinogen 1 mg/dL (0-1)
[2022-02-13 20:18] LABS: Nitrite NEGATIVE (NEGATIVE); Urine Cultured Indicated? NO
[2022-02-13 20:19] LABS: Dipstick done @ ? MAIN LAB
[2022-02-13] MEDS ORDERED: XYLOCAINE 1% HCL 20 ML MDV ONE (20:20)
[2022-02-13 20:28] LABS: Amphetamine,Urine NEGATIVE (NEGATIVE); Barbiturate,Urine NEGATIVE (NEGATIVE); Benzodiazepine,Urine NEGATIVE (NEGATIVE); Cocaine,Urine NEGATIVE (NEGATIVE); Methadone,Urine NEGATIVE (NEGATIVE); Opiate,Urine NEGATIVE (NEGATIVE); PCP,Urine NEGATIVE (NEGATIVE); THC,Urine NEGATIVE (NEGATIVE)
[2022-02-13] MEDS ORDERED: Keppra 500 MG/5 ML ONE (20:35)
[2022-02-13] MEDS: Keppra 500 MG/5 ML*** 1,000 MG in D5w 100ML Mini Bag 100 ML 100 ML IV ONE (20:36)
[2022-02-13] MEDS ORDERED: D5w 100ML Mini Bag 100 ML 100 ML IV ONE (20:36)
--- NOTE | 2022-02-14 08:55 | XRAY ---
Indication: Seizure. Multiple contiguous axial images obtained through the head without contrast. Comparison: September 17, 2017. Normal appearing brain parenchyma, ventricles, and bony calvarium. Visualized paranasal sinuses and mastoid air cells are clear. Impression: Continued normal CT head without contrast exam.
--- NOTE | 2022-02-14 08:58 | XRAY ---
Indication: Seizure. Fracture. Multiple contiguous axial images obtained through the facial bones. Sagittal and coronal reformatted images obtained. Comparison: April 25, 2017. Spine of the maxilla demonstrates stable chronic nonunited fracture. No other acute fracture, suspicious bony lesions, or radiopaque foreign body. Orbits including roof, rodrigez, and floor intact. Anterior nasal septum demonstrates stable deviation to the right. Paranasal sinuses and nasal passages are clear. TMJ bilaterally symmetric. Visualized cervical spine intact. Remaining visualized noncontrasted soft tissues are unremarkable. 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 No new/acute abnormalities.
== END 2022-02-13 21:03 | disposition home or self-care (01) ==
LOC: ED 16:21
DX: R56.9 Unspecified convulsions (principal); S01.112A Laceration without foreign body of left eyelid and periocular area, initial encounter; S61.411A Laceration without foreign body of right hand, initial encounter; W19.XXXA Unspecified fall, initial encounter; Y93.89 Activity, other specified; Z91.14 Patient's other noncompliance with medication regimen; E78.5 Hyperlipidemia, unspecified; F84.0 Autistic disorder
CPT/HCPCS: 12011; 36000; 36415; 70450; 70486; 80053; 80307; 81015; 83735; 84484; 85025; 93005; 93041; 94760; 96374; 96375; 99284; J1953; J2060

== ENCOUNTER 2024-03-04 16:52 | Emergency (ER) | payer MEDICAID, OTHER ==
[2024-03-04] MEDS ORDERED: Keppra 500 MG/5 ML ONE (17:11)
[2024-03-04] MEDS ORDERED: D5w 100ML Mini Bag 100 ML 100 ML IV ONE (17:11)
[2024-03-04] MEDS ORDERED: xanAX 0.5 MG ONE (17:15)
[2024-03-04] MEDS: Keppra 500 MG/5 ML*** 500 MG in D5w 100ML Mini Bag 100 ML 100 ML IV ONE (17:17)
[2024-03-04] MEDS: xanAX 0.5 MG PO ONE (17:18)
[2024-03-04 17:19] VITALS: TEMP 98.3
[2024-03-04 18:22] VITALS: BP 118/64; PULSE 88; RESP 22
[2024-03-04 18:25] VITALS: O2SAT 98
--- NOTE | 2024-03-04 18:25 | ERPHSYRPT ---
- History of Present Illness Time Seen by Provider: 03/04/24 17:20 Source: patient, family Patient Subjective Stated Complaint: pt had a seizure and fell off the stairs hitting his left side of face causing swelling and a laceration Triage Nursing Assessment: Pt brought to the ER by his father, vitals wnl, swelling to the left eye area and a laceration to the left upper side of head, pulses normal, skin n/w/d, seizure 3 days ago, non verbal and autistic, denies any other injuries, Physician History: Patient is a 28-year-old autistic male who suffered a seizure at home and fell hitting his left face and forehead on the stairs.His last previous seizure was 3 days ago and his dose of Keppra which is 500 mg twice a day has not yet been increased.He was somewhat postictal when he arrived but was quickly regaining baseline status he is minimally verbal Occurred: just prior to arrival Injuries/Pain Location: head (Abrasion and a 1 cm laceration to the left anterior forehead and scalp), face Loss of Consciousness: seizure Allergies/Adverse Reactions: No Known Drug Allergies Allergy (Verified 03/04/24 17:07) Home Medications: ALPRAZolam 1 MG [Xanax 1 mg] 1 mg PO DAILY PRN 03/04/24 [History] levETIRAcetam [Levetiracetam] 500 mg PO BID 03/04/24 [History] Hx Tetanus, Diphtheria Vaccination/Date Given: Yes Hx Influenza Vaccination/Date Given: Yes Hx Pneumococcal Vaccination/Date Given: No Travel Risk - International Travel Have you traveled outside of the country in past 3 weeks: No - Emerging Infectious Disease Are you exhibiting symptoms associated with any current EIDs: No - Review of Systems Constitutional: No Fever, No Chills Eyes: No Symptoms Ears, Nose, & Throat: No Symptoms Respiratory: No Cough, No Dyspnea Cardiac: No Chest Pain, No Edema, No Syncope Abdominal/Gastrointestinal: No Abdominal Pain, No Nausea, No Vomiting, No Diarrhea Genitourinary Symptoms: No Dysuria Musculoskeletal: No Back Pain, No Neck Pain Skin: No Rash Neurological: No Dizziness, No Focal Weakness, No Sensory Changes Psychological: No Symptoms Endocrine: No Symptoms All Other Systems: Reviewed and Negative - Past Medical History Pertinent Past Medical History: Yes Neurological History: Seizures Cardiac History: High Cholesterol Psycho-Social History: Other Other Medical History: AUTISM SPECTRUM DISORDER - Past Surgical History Past Surgical History: No Significant Family History: other (MOTHER HAD SEIZURE) - Social History Smoking Status: Never smoker Exposure to second hand smoke: No Drug Use: none Patient Lives Alone: No (father) - Nursing Vital Signs Nursing Vital Signs: Initial Vital Signs Temperature 98.3 F 03/04/24 17:03 Pulse Rate 101 H 03/04/24 17:03 Respiratory Rate 30 H 03/04/24 17:03 Blood Pressure 119/47 03/04/24 17:03 O2 Sat by Pulse Oximetry 98 03/04/24 17:03 Pain Scale Pain Intensity 6 - Nadine Coma Score Best Eye Response (Nadine): (4) open spontaneously Best Verbal Response (Nadine): (4) confused conversation Best Motor Response (Nadine): (6) obeys commands [place] Total: 14 - Physical Exam General Appearance: mild distress Head Injury: contusions (Left periorbital area and forehead), lacerations (1 cm left anterior scalp), swelling, tenderness Eye Exam: PERRL/EOMI ENT Exam: airway nml Neck Exam: normal inspection, No tenderness Respiratory/Chest Exam: normal breath sounds, No chest tenderness, No respiratory distress Cardiovascular Exam: normal heart sounds, regular rate/rhythm Gastrointestinal Exam: soft, No tenderness, No distention, No guarding, No ecchymosis Back Exam: normal inspection, No vertebral tenderness Extremity Exam: normal inspection, normal range of motion, pelvis stable, No deformities Neurologic Exam: cooperative, slurred speech, dysarthria, No motor deficits, No sensory deficit Skin Exam: abrasion, laceration SpO2 Interpretation: normal SpO2: 98 O2 Delivery: Room Air Procedures - Laceration/Wound Repair Left Anterior Head Wound Location: Left, forehead (1.5) Wound Length (cm): 1.5 Wound's Depth, Shape: superficial Wound Explored: clean Irrigated: Yes Hibiclens Prep: Yes Anesthesia: 1% Lidocaine Volume Anesthetic (ccs): 1.5 Wound Debrided: minimal Wound Repaired With: sutures Suture Size/Type: 4-0, nylon Number of Sutures: 2 Layer Closure?: No Sterile Dressing Applied?: Yes Splint Applied?: No - Course Nursing assessment & vital signs reviewed: Yes - CT Exams Head CT Interpretation: Negative, Other (Reviewed by ED physician) Maxillofacial Bones CT Interpretation: Negative, Other (Reviewed by ED physician) Ordered Tests: Active Orders 24 hr Category Date Time Status IV Insertion STAT Care 03/04/24 17:10 Active FACIAL BONES WO CONTRAST [CT] Stat Exams 03/04/24 17:01 Taken HEAD WITHOUT CONTRAST [CT] Stat Exams 03/04/24 17:01 Taken Medication Summary Discontinued Medications Generic Name Dose Route Start Last Admin Trade Name Marely PRN Reason Stop Dose Admin Alprazolam 0.5 mg 03/04/24 17:05 03/04/24 17:18 Alprazolam 0.5 Mg Tablet PO 03/04/24 17:06 0.5 mg STAT ONE Administration Alprazolam Confirm 03/04/24 17:15 Alprazolam 0.5 Mg Tablet Administered 03/04/24 17:16 Dose 0.5 mg .ROUTE .STK-MED ONE Levetiracetam 500 mg/ Dextrose 105 mls @ 400 mls/hr 03/04/24 17:04 03/04/24 17:17 IV 03/04/24 17:19 400 mls/hr STAT ONE Administration Dextrose Confirm 03/04/24 17:11 D5w 100ml Mini Bag 100 Ml Administered 03/04/24 17:12 Dose 100 mls @ ud IV .STK-MED ONE Levetiracetam Confirm 03/04/24 17:11 Levetiracetam 500 Mg/5 Ml Vial Administered 03/04/24 17:12 Dose 500 mg .ROUTE .STK-MED ONE - Progress Progress: improved Progress Note: 03/04/24 18:27 Patient was back to baseline at the time of discharge the scalp laceration has been sutured and the dressing applied to the area of abrasion. Medical Desision Making - Diagnostic Testing Radiological Interpretation: Reviewed by me - Departure Departure Disposition: Home Clinical Impression: Seizure, Scalp laceration, Facial contusion Condition: Stable Critical Care Time: No Referrals: YAAKOV WILSON [Primary Care Provider] - Follow up/PCP as directed Instructions: Head Injury in Adults (DC), Epilepsy in adults, Laceration Repair With Stitches ED, Wound Care ED Additional Instructions: Patient was instructed and his father was instructed to increase his Keppra to 1000 mg twice daily
[2024-03-04] MEDS ORDERED: BACIGUENT PACKET ONE (18:48)
[2024-03-04] MEDS: BACIGUENT PACKET TP ONE (18:50)
--- NOTE | 2024-03-04 21:38 | XRAY ---
Indication: Status post fall. Left forehead injury. Multiple contiguous axial images obtained through the head without contrast. Comparison: February 13, 2022. Minimal left periorbital soft tissue swelling. Otherwise normal appearing brain parenchyma, ventricles, and bony calvarium. Visualized paranasal sinuses and mastoid air cells are clear. CT facial bones reported separately. Impression: Left periorbital soft tissue swelling. Normal CT head without contrast exam.
--- NOTE | 2024-03-04 21:40 | XRAY ---
Indication: Status post fall. Left forehead injury. Multiple contiguous axial images obtained through the facial bones. Sagittal and coronal reformatted images obtained. Comparison: February 13, 2022. Minimal left facial and left periorbital soft tissue swelling. Spine of maxilla again demonstrates chronic nonunited fracture. No acute fracture, suspicious bony lesions, or radiopaque foreign body. Orbits including roof, rodrigez, and floors are intact. Anterior nasal septum demonstrates stable deviation to the right. Both maxillary sinuses demonstrates minimal mucosal thickening without fluid leveling. Remaining paranasal sinuses and nasal passages are clear. Remaining visualized noncontrasted soft tissues are unremarkable CT head reported separately. Impression: Left facial/periorbital soft tissue swelling. No acute fracture. Stable chronic nonunited fracture spine of maxilla and nasal septal deviation. Incidental paranasal sinus disease.
== END 2024-03-04 18:56 | disposition home or self-care (01) ==
LOC: ED 16:52
DX: G40.909 Epilepsy, unspecified, not intractable, without status epilepticus (principal); S01.01XA Laceration without foreign body of scalp, initial encounter; S00.12XA Contusion of left eyelid and periocular area, initial encounter; S00.83XA Contusion of other part of head, initial encounter; W10.9XXA Fall (on) (from) unspecified stairs and steps, initial encounter; E78.5 Hyperlipidemia, unspecified; Z79.899 Other long term (current) drug therapy
CPT/HCPCS: 12001; 36000; 70450; 70486; 99284; J1953; A9270-GY